=== PATIENT | male | born 1990 ===

== ENCOUNTER 2022-06-19 17:36 | Emergency (ER) | payer SELFPAY ==
[2022-06-19 18:52] LABS: Basophils # (Auto) 0.1 K/mm3 (0.0-0.1); Eosinophils # (Auto) 0.4 K/mm3 (0.0-0.4); Eosinophils % (Auto) 3.3 % (0.0-4.3); Hematocrit 43.2 % (35.5-45.6); Hemoglobin 15.2 gm/dl (11.8-15.2); Lymphocytes # (Auto) 2.7 K/mm3 (1.2-5.4); Lymphocytes % (Auto) 24.6 % (13.4-35.0); Mean Corpuscular HGB Conc 35 % (32-34); Mean Corpuscular Volume 88 fl (84-94); Monocytes # (Auto) 0.7 K/mm3 (0.0-0.8); Monocytes % (Auto) 6.9 % (0.0-7.3); Platelet Count 217 K/mm3 (140-440); Red Blood Count 4.91 M/mm3 (3.65-5.03); Red Cell Distribution Width 13.6 % (13.2-15.2)
[2022-06-19 19:08] LABS: Alanine Aminotransferase 93 units/L (7-56); Albumin 5.1 g/dL (3.9-5); BUN/Creatinine Ratio 13; Blood Urea Nitrogen 12 mg/dL (9-20); Calcium 9.7 mg/dL (8.4-10.2); Hemolysis Index 15
--- NOTE | 2022-06-19 20:08 | Cat Scan Report ---
CT BRAIN: 06/19/2022 INDICATION / CLINICAL INFORMATION: Syncope. COMPARISON: None available. FINDINGS: BRAIN/INTRACRANIAL STRUCTURES: Unenhanced CT images of the brain demonstrate no evidence of acute abn ormality. Ventricles and sulci are normal in size and shape. There is no evidence of hemorrhage or mass. There are no abnormal extra-axial fluid collections. EXTRACRANIAL STRUCTURES: Unremarkable. IMPRESSION: Negative unenhanced CT of the brain. All CT scans at this location are performed using dose reduction to ALARA by means of automated expos ure control. Signer Name: Ky Doty MD Signed: 06/19/2022 8:03 PM Workstation Name: [id number]
[2022-06-20] MEDS ORDERED: SODIUM CHLORIDE 0.9% 1000 ML 1,000 ML IV ONE (09:12)
[2022-06-20] MEDS ORDERED: ACETAMINOPHEN 500 MG TAB PO ONE (09:13)
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
[2022-06-20 10:19] VITALS: BP 144/88
--- NOTE | 2022-06-20 12:17 | XRay Report ---
CHEST 2 VIEWS INDICATION / CLINICAL INFORMATION: syncope. COMPARISON: None available. FINDINGS: SUPPORT DEVICES: None. HEART / MEDIASTINUM: No significant abnormality. LUNGS / PLEURA: No significant pulmonary or pleural abnormality. No pneumothorax. ADDITIONAL FINDINGS: No significant additional findings. IMPRESSION: 1. No acute findings. Signer Name: Master Ramesh MD Signed: 06/20/2022 12:13 PM Workstation Name: [id number]
--- NOTE | 2022-06-21 10:38 | Electrocardiograph Report ---
[facility] Test Date: 2022-06-20 Test Time: 12:51:47 Pat Name: MAGDALENO BAUTISTA CASTRODepartment: Room: Gender: M Assurance Manager: ELDA : 1990 Requested By: TANNER JACOME Order Number: [id number] Reading MD: Arjun Decker Measurements Intervals [place] Rate: 61 P: 34 GA: 172 QRS: 29 QRSD: 115 T: 30 QT: 385 QTc: 390 Interpretive Statements Sinus rhythm Incomplete right bundle branch block Low voltage, precordial leads No previous ECG available for comparison Electronically Signed On 06-21-2022 10:37:43 EDT by Arjun Decker
== END 2022-06-20 13:57 | disposition home or self-care (01) ==
LOC: ED 17:36
DX: S00.03XA Contusion of scalp, initial encounter (principal); R55 Syncope and collapse; X58.XXXA Exposure to other specified factors, initial encounter; Y93.89 Activity, other specified; Y92.89 Other specified places as the place of occurrence of the external cause; Y99.8 Other external cause status
CPT/HCPCS: 36415; 70450; 71046; 80053; 85025; 93005; 96360; 99284